=== PATIENT | female | born 1960 | race Caucasian/White ===

== ENCOUNTER → 2017-01-09 | Outpatient (CLI) | payer OTHER | LOC: EXRD 09:35 | DX: R06.00 Dyspnea, unspecified (principal); Z12.31 Encounter for screening mammogram for malignant neoplasm of breast; H57.10 Ocular pain, unspecified eye; G43.909 Migraine, unspecified, not intractable, without status migrainosus; R20.2 Paresthesia of skin; R91.1 Solitary pulmonary nodule; R07.9 Chest pain, unspecified | CPT/HCPCS: 71020 ==

== ENCOUNTER → 2017-01-14 | Outpatient (CLI) | payer OTHER | LOC: MAMO 10:29 → MRI 11:00 | DX: Z12.31 Encounter for screening mammogram for malignant neoplasm of breast (principal); G43.909 Migraine, unspecified, not intractable, without status migrainosus; Z80.3 Family history of malignant neoplasm of breast | CPT/HCPCS: 70553; A9577; G0202 ==

== ENCOUNTER → 2017-01-30 | Outpatient (CLI) | payer OTHER | LOC: KOH-I 09:23 | DX: F17.210 Nicotine dependence, cigarettes, uncomplicated (principal); R91.8 Other nonspecific abnormal finding of lung field | CPT/HCPCS: G0297 ==

== ENCOUNTER → 2017-06-25 | Outpatient (CLI) | payer OTHER | LOC: KOH-I 15:28 | DX: M54.12 Radiculopathy, cervical region (principal); M54.5 Low back pain; G89.29 Other chronic pain; M47.22 Other spondylosis with radiculopathy, cervical region; M47.896 Other spondylosis, lumbar region | CPT/HCPCS: 72040; 72070; 72100 ==

== ENCOUNTER → 2020-12-23 | Outpatient (CLI) | payer OTHER ==
[~2020-12-23] VITALS: Ht 157.5 cm; Wt 81.2 kg
== END ==
LOC: OPSV 11:56
DX: M81.0 Age-related osteoporosis without current pathological fracture (principal)
CPT/HCPCS: 96365; J3489

== ENCOUNTER → 2021-03-16 | Outpatient (CLI) | payer OTHER ==
[2021-03-16 08:53] LABS: HEMOGLOBIN 13.2 gm/dl (12.3-15.3); RED BLOOD COUNT 4.66 M/UL (4.00-5.10); WHITE BLOOD COUNT 9.9 K/UL (4.5-11.0)
[2021-03-16 09:25] LABS: BUN/CREATININE RATIO 10 (0-10)
== END ==
LOC: NM 08:19 → MAMO 08:30 → NM 09:00
PROVIDERS: Nurse Practitioner Family
DX: J01.10 Acute frontal sinusitis, unspecified (principal); I25.10 Atherosclerotic heart disease of native coronary artery without angina pectoris; R19.8 Other specified symptoms and signs involving the digestive system and abdomen; R10.9 Unspecified abdominal pain; J30.9 Allergic rhinitis, unspecified; E78.5 Hyperlipidemia, unspecified; F32.9 Major depressive disorder, single episode, unspecified; E53.8 Deficiency of other specified B group vitamins; E55.9 Vitamin D deficiency, unspecified
CPT/HCPCS: 36415; 78264; 80053; 80061; 82607; 84439; 84443; 85025; A9541

== ENCOUNTER → 2021-12-21 | Outpatient (CLI) | payer OTHER | LOC: EXRD 14:04 | DX: R07.81 Pleurodynia (principal); Z91.81 History of falling | CPT/HCPCS: 71101 ==

== ENCOUNTER → 2022-03-19 | Outpatient (CLI) | payer OTHER ==
[~2022-03-19] VITALS: Ht 157.5 cm; Wt 79.4 kg
== END ==
LOC: OPSV 13:00
DX: M81.0 Age-related osteoporosis without current pathological fracture (principal)
CPT/HCPCS: 96365; J3489